=== PATIENT | male | born 2000 | race African-American/Black ===

== ENCOUNTER 2023-01-09 13:10 | Emergency (ER) | payer SELFPAY ==
[2023-01-09 15:39] LABS: SARS-CoV-2 NAA Rapid Test Not Detected (NotDetected)
== END 2023-01-09 15:33 | disposition home or self-care (01) ==
LOC: ERS 13:10
DX: R50.9 Fever, unspecified (principal); Z20.822 Contact with and (suspected) exposure to COVID-19
CPT/HCPCS: 99283